=== PATIENT | male | born 1970 | race Caucasian/White ===

== ENCOUNTER 2018-01-26 13:22 | Emergency (ER) | payer OTHER ==
[~2018-01-26] VITALS: Ht 170.2 cm; Wt 84.1 kg
[2018-01-26 14:55] LABS: GLUCOSE,POINT OF CARE 98 MG/DL (70-110)
[2018-01-26 15:33] LABS: GLUCOSE,POINT OF CARE 99 MG/DL (70-110)
[2018-01-26] MEDS ORDERED: ESCI10TA PO (15:36)
[2018-01-26] MEDS ORDERED: RISP.5 PO (15:36)
[2018-01-26] MEDS ORDERED: FURO20 PO (15:36)
[2018-01-26] MEDS ORDERED: SLOWK8 PO (15:36)
[2018-01-26] MEDS ORDERED: RISP1 PO (15:36)
[2018-01-26] MEDS ORDERED: DIVA-78 PO (15:36)
[2018-01-26] MEDS ORDERED: TOPI25 PO (15:36)
[2018-01-26] MEDS ORDERED: KDUR20 PO (15:36)
[2018-01-26] MEDS ORDERED: DARU800T PO (15:36)
[2018-01-26] MEDS ORDERED: GEMF600T3 PO (15:36)
[2018-01-26 16:01] LABS: BASOPHILS % (AUTO) 0.4 % (0.0-2.0); EOSINOPHILS % (AUTO) 0.7 % (1.0-6.0); HEMATOCRIT 40.8 % (41-53); HEMOGLOBIN 13.4 g/dL (13.5-17.5); LYMPHOCYTES # (AUTO) 1.1 K/uL (1.0-4.8); LYMPHOCYTES % (AUTO) 18.4 % (22.0-44.0); MEAN CORPUSCULAR HEMOGLOBIN 28.6 pg (26.0-34.0); MEAN CORPUSCULAR HGB CONC 32.9 G/dL (31.0-37.0); MEAN CORPUSCULAR VOLUME 87 fL (80-100); MONOCYTES # (AUTO) 0.6 K/uL (0.1-1.0); MONOCYTES % (AUTO) 10.8 % (2.0-9.0); NEUTROPHILS % (AUTO) 69.7 % (40.0-70.0); PLATELET COUNT (AUTO) 311 K/uL (150-450); RED BLOOD CELL COUNT(AUTO) 4.69 MIL/uL (4.50-5.90); RED CELL DISTRIBUTION WIDTH 14.6 % (11.5-14.5)
[2018-01-26 16:23] LABS: ANION GAP 11 mmol/L (8-16); CALCIUM, TOTAL 9.5 mg/dL (8.8-10.5); CARBON DIOXIDE 27 mmol/L (22-29); CHLORIDE 99 mmol/L (98-107); CREATININE 1.12 mg/dL (0.60-1.30); GLOMERULAR FILTR. RATE CALC > 60 mL/min (>60); GLUCOSE,RANDOM 101 mg/dL (70-110); POTASSIUM 3.9 mmol/L (3.5-5.1); SODIUM SERUM 137 mmol/L (136-145); UREA NITROGEN, BLOOD 12 mg/dL (7-18)
[2018-01-26 16:31] LABS: ALANINE AMINOTRANSFERASE 36 U/L (12-78); ALBUMIN 3.5 g/dL (3.4-5.0); ALKALINE PHOSPHATASE 102 U/L (46-116); ASPARTATE AMINOTRANSFERASE 18 U/L (15-37); BILIRUBIN,TOTAL 0.3 mg/dL (0.1-1.0); TOTAL PROTEIN, SERUM 7.5 g/dL (6.4-8.2)
[2018-01-26 16:41] LABS: VALPROIC ACID 38 mcg/mL (50-100)
[2018-01-26 16:43] LABS: AMPHET/METH SCREEN,URINE NEGATIVE (NEGATIVE); BARBITURATE SCREEN, URINE NEGATIVE (NEGATIVE); BENZODIAZEPINES SCREEN,URINE NEGATIVE (NEGATIVE); CANNABINOID SCREEN,URINE NEGATIVE (NEGATIVE); COCAINE SCREEN,URINE NEGATIVE (NEGATIVE); METHADONE SCREEN, URINE NEGATIVE (NEGATIVE); OPIATE SCREEN,URINE NEGATIVE (NEGATIVE); PHENCYCLIDINE SCREEN,URINE NEGATIVE (NEGATIVE)
[2018-01-26 17:14] VITALS: BP 117/66
== END 2018-01-26 18:04 | disposition home or self-care (01) ==
LOC: EMS 13:24
DX: F20.9 Schizophrenia, unspecified (principal); E03.9 Hypothyroidism, unspecified; E78.00 Pure hypercholesterolemia, unspecified; F32.9 Major depressive disorder, single episode, unspecified; Z88.0 Allergy status to penicillin
CPT/HCPCS: 36415; 80053; 80164; 80307; 82962; 85025; 99284; G0480